=== PATIENT | male | born 1980 | race Caucasian/White ===

== ENCOUNTER 2018-04-30 12:33 | Emergency (ER) | payer OTHER ==
[2018-04-30 12:45] VITALS: BP 143/91
[2018-04-30] MEDS ORDERED: TETANUS/DIPHTHERIA/PERTUSSIS 0.5 ML SYRINGE IM ONE (13:01)
[2018-04-30] MEDS ORDERED: BACITRACIN OINT TOP STA (13:23)
--- NOTE | 2018-04-30 13:30 | ED Physician Documentation ---
PD HPI UPPER EXT INJURY - Stated complaint Stated Complaint: ARM LAC - Chief complaint Chief Complaint: Laceration - History obtained from History obtained from: Patient, Friend - History of Present Illness Location: Left, Elbow Type of injury: Laceration (L elbow) Where injury occurred: Work Timing - onset: Today Timing - duration: Hours (1) Timing - details: Abrupt onset Pain level max: 0 Pain level now: 0 Improved by: Rest Worsened by: Moving, Palpating Associated symptoms: No: Weakness, Numbness, Tingling, Swelling - Additonal information Additional information: cut L elbow on metal flashing today Review of Systems Constitutional: denies: Fever, Chills PD PAST MEDICAL HISTORY - Past Medical History Past Medical History: No - Past Surgical History Past Surgical History: No - Present Medications Home Medications: Ambulatory Orders Medication Instructions Recorded Confirmed No Known Home Medications [No 04/30/18 04/30/18 Known Home Medications] - Allergies Allergies/Adverse Reactions: Allergies Allergy/AdvReac Type Severity Reaction Status Date / Time No Known Drug Allergies Allergy Verified 04/30/18 12:39 - Social History Does the pt smoke?: No Smoking Status: Never smoker Does the pt drink ETOH?: No Does the pt have substance abuse?: Yes Substance Use and Type: Marijuana - Immunizations Immunizations are current?: No Immunizations: TDAP >10years/unknown - POLST Patient has POLST: No PD ED PE NORMAL - Vitals Vital signs reviewed: Yes - General General: Alert and oriented X 3, No acute distress - Derm Derm: Warm and dry - Neuro Neuro: Alert and oriented X 3 - Psych Psych: Normal mood, Normal affect PD ED PE EXPANDED - Extremities KLEVER UE/Hands Visual: 1 - laceration (3cm, linear into subcutaneous fat. nvi) Results - Vitals Vitals: Vital Signs - 24 hr 04/30/18 12:36 Temperature 35.4 C L Heart Rate 93 Respiratory 16 Rate Blood Pressure 143/91 H O2 Saturation 92 Oxygen O2 Source Room air Procedures - Laceration (location) L elbow Length in cm: 3 Wound type: Linear, Into subcut fat Neurovascular status: Sensory intact, Motor intact, Vascular intact Wound Preparation: Irrigated copiously NS Skin layer closure: Harleen Other: Patient tolerated well, No complications, Neurovascular intact Complexity: Simple PD MEDICAL DECISION MAKING - ED course Complexity details: considered differential, d/w patient ED course: Patient is a 37-year-old male with a laceration to left elbow. Repaired with harleen. Tolerated well. Tdap given. Warnings of infection and instructions on wound care given at bedside. Also counseled on how to minimize scarring. Patient counseled regarding signs and symptoms for which I believe and urgent re -evaluation would be necessary. Patient with good understanding of and agreement to plan and is comfortable going home at this time This document was made in part using voice recognition software. While efforts are made to proofread this document, sound alike and grammatical errors may occur. L and I paperwork filled out - Sepsis Event Vital Signs: Vital Signs - 24 hr 04/30/18 12:36 Temperature 35.4 C L Heart Rate 93 Respiratory 16 Rate Blood Pressure 143/91 H O2 Saturation 92 Oxygen O2 Source Room air Departure - Departure Disposition: 01 Home, Self Care Clinical Impression: Elbow laceration Qualifiers: Encounter type: initial encounter Laterality: left Qualified Code(s): S51.012A - Laceration without foreign body of left elbow, initial encounter Condition: Good Instructions: ED Laceration Ext Sutr Stap Tape Follow-Up: your,doctor in 10-14 days for staple removal [Other] Comments: Return if you worsen. Keep the wound clean. The harleen should be removed in 10- 14 days. Return for redness, swelling or drainage from the wound. Discharge Date/Time: 04/30/18 13:52
== END 2018-04-30 13:52 | disposition home or self-care (01) ==
LOC: ED 12:33
DX: S51.012A Laceration without foreign body of left elbow, initial encounter (principal); W26.8XXA Contact with other sharp object(s), not elsewhere classified, initial encounter; Y93.H3 Activity, building and construction; Y99.0 Civilian activity done for income or pay
CPT/HCPCS: 1040M; 12002; 90471; 90715; 99283; A9270

== ENCOUNTER 2018-05-12 13:44 | Emergency (ER) | payer OTHER ==
[2018-05-12 13:53] VITALS: BP 136/84
--- NOTE | 2018-05-12 14:02 | ED Physician Documentation ---
History of Present Illness - Stated complaint Stated Complaint: SUTURE REMOVAL - Chief complaint Chief Complaint: General - History obtained from History obtained from: Patient - History of Present Illness Timing: Other (3 harleen in the elbow from a visit 13 days ago that he needs removed, he has not had any issues with them.) PD PAST MEDICAL HISTORY - Past Medical History Past Medical History: Yes - Past Surgical History Past Surgical History: No - Present Medications Home Medications: Ambulatory Orders Medication Instructions Recorded Confirmed No Known Home Medications [No 04/30/18 04/30/18 Known Home Medications] - Allergies Allergies/Adverse Reactions: Allergies Allergy/AdvReac Type Severity Reaction Status Date / Time No Known Drug Allergies Allergy Verified 05/12/18 13:53 - Social History Does the pt smoke?: No Smoking Status: Never smoker Does the pt drink ETOH?: No Does the pt have substance abuse?: Yes - Immunizations Immunizations are current?: Yes Immunizations: TDAP current <10years - POLST Patient has POLST: No PD ED PE NORMAL - Vitals Vital signs reviewed: Yes - General General: Alert and oriented X 3, No acute distress - Extremities Extremities: Other (On of the left elbow with 3 harleen in it, no evidence of infection. The harleen were removed during examination and replaced with Steri- Strips with benzoin.) - Neuro Neuro: Alert and oriented X 3, Normal speech Results - Vitals Vitals: Vital Signs - 24 hr 05/12/18 13:52 Temperature 37 C Heart Rate 102 H Respiratory 20 Rate Blood Pressure 136/84 H O2 Saturation 99 Oxygen O2 Source Room air PD MEDICAL DECISION MAKING - Sepsis Event Vital Signs: Vital Signs - 24 hr 05/12/18 13:52 Temperature 37 C Heart Rate 102 H Respiratory 20 Rate Blood Pressure 136/84 H O2 Saturation 99 Oxygen O2 Source Room air Departure - Departure Disposition: 01 Home, Self Care Clinical Impression: Encounter for staple removal Condition: Good Comments: Your blood pressure was elevated today on check into the emergency department. This does not mean that you have hypertension, it is a common phenomenon to come to the emergency department and have elevated blood pressure. I recommend that you see your primary care physician within the week to have it rechecked when you are feeling better.
== END 2018-05-12 14:02 | disposition home or self-care (01) ==
LOC: ED 13:44
DX: Z48.02 Encounter for removal of sutures (principal); R03.0 Elevated blood-pressure reading, without diagnosis of hypertension
CPT/HCPCS: 99282

== ENCOUNTER 2020-02-20 18:38 | Emergency (ER) | payer OTHER ==
[2020-02-20 19:23] LABS: BASOPHILS # (AUTO) 0.1 10^3/uL (0.0-0.1); BASOPHILS % (AUTO) 0.6 %; EOSINOPHILS % (AUTO) 0.2 %; HGB - HEMOGLOBIN 15.2 g/dL (14.0-18.0); LYMPHOCYTES # (AUTO) 1.6 10^3/uL (1.5-3.5); LYMPHOCYTES % (AUTO) 12.7 %; MEAN CORPUSCULAR HEMOGLOBIN 31.5 pg (27.0-31.0); MEAN CORPUSCULAR HGB CONC 34.6 g/dL (32.0-36.0); MEAN CORPUSCULAR VOLUME 91.1 fL (80.0-94.0); MEAN PLATELET VOLUME 11.3 fL (7.4-11.4); MONOCYTES # (AUTO) 0.6 10^3/uL (0.0-1.0); MONOCYTES % (AUTO) 5.2 %; NEUTROPHILS # (AUTO) 9.9 10^3/uL (1.5-6.6); PLT - PLATELET COUNT 241 10^3/uL (130-450); RED BLOOD COUNT 4.82 10^6/uL (4.70-6.10); RED CELL DISTRIBUTION WIDTH 12.1 % (12.0-15.0); WHITE BLOOD COUNT 12.2 x10^3/uL (4.8-10.8)
[2020-02-20 19:26] LABS: BILIRUBIN,URINE NEGATIVE (NEGATIVE); GLUCOSE, URINE (UA) NEGATIVE (NEGATIVE); KETONES,URINE (UA) 15 mg/dL (NEGATIVE); LEUKOCYTE ESTERASE, URINE NEGATIVE (NEGATIVE); NITRITE,URINE NEGATIVE (NEGATIVE); OCCULT BLOOD,URINE LARGE (NEGATIVE); PH,URINE 8.5 PH (5.0-7.5); PROTEIN,URINE TRACE mg/dL (NEGATIVE); UROBILINOGEN,URINE 0.2 (NORMAL) E.U./dL (NORMAL)
[2020-02-20 19:27] LABS: ALBUMIN 4.8 g/dL (3.2-5.5); ALBUMIN/GLOBULIN RATIO 1.4 (1.0-2.2); BILIRUBIN,TOTAL 0.9 mg/dL (0.2-1.0); CALCIUM 9.8 mg/dL (8.5-10.3); TOTAL PROTEIN 8.3 g/dL (6.7-8.2)
[2020-02-20 19:30] LABS: CLARITY,URINE CLEAR (CLEAR)
[2020-02-20 19:31] LABS: BACTERIA,URINE Rare /HPF (None Seen); RBC,URINE TNTC /HPF (0-5); SQUAMOUS EPITHELIAL CELL,UR NONE SEEN (<= Few)
[2020-02-20] MEDS ORDERED: SODIUM CHLORIDE 0.9% 1,000 ML IV STA (19:39)
[2020-02-20] MEDS ORDERED: KETOROLAC 30 MG/ML VIAL IVP STA (19:39)
[2020-02-20] MEDS ORDERED: ONDANSETRON 4 MG/2 ML VIAL IVP STA (19:39)
[2020-02-20] MEDS ORDERED: HYDROmorphone 0.5 MG/0.5 ML SYRINGE IVP STA (19:39)
--- NOTE | 2020-02-20 19:42 | ED Physician Documentation ---
History of Present Illness - Stated complaint Stated Complaint: LT SIDE ABD PX - Chief complaint Chief Complaint: Abd Pain - History obtained from History obtained from: Patient (Patient is a 39-year-old male who presents with left-sided flank pain with dysuria and hematuria with a history of kidney stones with nausea and vomiting and pain he denies any fevers reports he is able to void. Denies any other complaints.) Review of Systems Constitutional: reports: Reviewed and negative Eyes: reports: Reviewed and negative Ears: reports: Reviewed and negative Nose: reports: Reviewed and negative Throat: reports: Reviewed and negative Cardiac: reports: Reviewed and negative Respiratory: reports: Reviewed and negative GI: reports: Other (Left-sided flank pain and hematuria) : reports: Reviewed and negative Skin: reports: Reviewed and negative Musculoskeletal: reports: Reviewed and negative Neurologic: reports: Reviewed and negative Psychiatric: reports: Reviewed and negative Endocrine: reports: Reviewed and negative Immunocompromised: reports: Reviewed and negative PD PAST MEDICAL HISTORY - Past Medical History Past Medical History: Yes Cardiovascular: None Respiratory: None Neuro: None Endocrine/Autoimmune: None GI: None : Kidney stones HEENT: None Psych: None Musculoskeletal: None Derm: None Other Past Medical History: KIDNEY STONES X 5 years ago.... - Past Surgical History Past Surgical History: No - Present Medications Home Medications: Ambulatory Orders Medication Instructions Recorded Confirmed Hydrocodone/Acetaminophen [Arrey 1 each PO Q6HR PRN #14 tablet 02/20/20 5-325 Tablet] Ondansetron Odt [Zofran Odt] 4 mg TL Q6H PRN #10 tablet 02/20/20 Tamsulosin HCl [Flomax] 0.4 mg PO DAILY 7 Days #7 02/20/20 cap.er.24h - Allergies Allergies/Adverse Reactions: Allergies Allergy/AdvReac Type Severity Reaction Status Date / Time SUNSCREEN/PAVO AdvReac Unknown Uncoded 02/20/20 19:18 - Social History Does the pt smoke?: Yes Smoking Status: Current every day smoker Does the pt drink ETOH?: No Does the pt have substance abuse?: Yes - Immunizations Immunizations are current?: Yes Immunizations: TDAP current <10years - POLST Patient has POLST: No PD ED PE NORMAL - Vitals Vital signs reviewed: Yes - General General: Alert and oriented X 3, No acute distress, Well developed/nourished - HEENT HEENT: Atraumatic, PERRL - Neck Neck: Supple, no meningeal sign - Cardiac Cardiac: RRR, No murmur, Strong equal pulses - Respiratory Respiratory: No respiratory distress, Clear bilaterally - Abdomen Abdomen: Other (The abdomen soft, nontender, nondistended with normoactive bowel sounds no guarding or rebound or hepatosplenomegaly positive for left-sided CVA tenderness.) - Back Back: Other (Positive for left-sided CVA tenderness palpation) - Derm Derm: Warm and dry - Extremities Extremities: No deformity - Neuro Neuro: Alert and oriented X 3 - Psych Psych: Normal mood, Normal affect Results - Vitals Vitals: Vital Signs - 24 hr 02/20/20 02/20/20 02/20/20 18:55 19:12 19:15 Temperature 36.9 C Heart Rate 82 Respiratory 14 17 17 Rate Blood Pressure 134/70 H O2 Saturation 100 02/20/20 02/20/20 02/20/20 19:50 20:02 20:03 Temperature Heart Rate Respiratory 21 19 18 Rate Blood Pressure O2 Saturation 02/20/20 02/20/20 02/20/20 20:17 20:30 20:58 Temperature Heart Rate 94 85 84 Respiratory 17 17 17 Rate Blood Pressure 121/94 H 128/78 O2 Saturation 97 98 98 02/20/20 21:39 Temperature Heart Rate Respiratory 17 Rate Blood Pressure O2 Saturation Oxygen O2 Source Room air - Labs Labs: Laboratory Tests 02/20/20 02/20/20 02/20/20 19:07 19:07 19:15 WBC 12.2 H RBC 4.82 Hgb 15.2 Hct 43.9 MCV 91.1 MCH 31.5 H MCHC 34.6 RDW 12.1 Plt Count 241 MPV 11.3 Neut # (Auto) 9.9 H Lymph # (Auto) 1.6 Jay # (Auto) 0.6 Eos # (Auto) 0.0 Baso # (Auto) 0.1 Absolute Nucleated RBC 0.00 Nucleated RBC % 0.0 Sodium 137 Potassium 3.4 L Chloride 102 Carbon Dioxide 22 Anion Gap 13.0 BUN 14 Creatinine 1.0 Estimated GFR (MDRD) 84 L Glucose 121 H Calcium 9.8 Total Bilirubin 0.9 AST 34 ALT 38 Alkaline Phosphatase 112 Total Protein 8.3 H Albumin 4.8 Globulin 3.5 Albumin/Globulin Ratio 1.4 Lipase 42 Urine Color DARK YELLOW Urine Clarity CLEAR Urine pH 8.5 H Ur Specific [place] 1.020 Urine Protein TRACE Urine Glucose (UA) NEGATIVE Urine Ketones 15 H Urine Occult Blood LARGE H Urine Nitrite NEGATIVE Urine Bilirubin NEGATIVE Urine Urobilinogen 0.2 (NORMAL) Ur Leukocyte Esterase NEGATIVE Urine RBC TNTC H Urine WBC 4-5 Ur Squamous Epith Cells NONE SEEN Urine Bacteria Rare Ur Microscopic Review INDICATED Urine Culture Comments NOT INDICATED PD MEDICAL DECISION MAKING - ED course Complexity details: reviewed results, re-evaluated patient, considered differential (Likely nephrolithiasis/ureterolithiasis.), d/w patient (Had a lengthy discussion with this patient regarding his plan of care and treatment I did offer to transfer him to a higher level of care given the fact he does a 7 mm kidney stone with some mild hydro-no fever no leukocytosis pain is controlled and he is able to void without complications urinalysis shows no signs of infection given this the patient would like to be discharged home I did consult a urologist at [facility] who is agreed to evaluate this patient tomorrow as an outpatient.Patient with patient is agreeable to this plan will be discharged home.) - Consults Consults: Discussed case with (dr pineda urology. Recommends discharge home with antiemetics analgesics and Flomax call urology tomorrow to schedule follow-up. Does not recommend antibiotics.) Departure - Departure Disposition: 01 Home, Self Care Clinical Impression: Kidney stones Condition: Stable Instructions: Kidney Stones, ED Strainer Urine Follow-Up: Abdulkadir iPneda MD [Physician No Access] - Tomorrow Prescriptions: Hydrocodone/Acetaminophen [Arrey 5-325 Tablet] 1 each PO Q6HR PRN #14 tablet PRN Reason: Pain Ondansetron Odt [Zofran Odt] 4 mg TL Q6H PRN #10 tablet PRN Reason: Nausea / Vomiting Tamsulosin HCl [Flomax] 0.4 mg PO DAILY 7 Days #7 cap.er.24h Comments: Call urology tomorrow to schedule an appointment hydrate well. Take Flomax daily as prescribed. Discharge Date/Time: 02/20/20 21:49
[2020-02-20] MEDS ORDERED: HYDROmorphone 1 MG/ML CARPUJECT ONE (19:48)
--- NOTE | 2020-02-20 20:43 | CT Report ---
Reason: left flank pain Procedure Date: 02/20/2020 Accession Number: [id number] / [id number] Procedure: CT - Abdomen/Pelvis WO CPT Code: Final Report FULL RESULT: EXAM: CT ABDOMEN AND PELVIS EXAM DATE: 02/20/2020 08:11 PM. CLINICAL HISTORY: Left flank pain. COMPARISONS: None. TECHNIQUE: Routine helical CT imaging was performed through the abdomen and pelvis without intravenous contrast. Lack of intravenous contrast can at times limit scan sensitivity, particularly for the detection of intraparenchymal and vascular pathology. Reconstructions: Coronal and sagittal. In accordance with CT protocol optimization, one or more of the following dose reduction techniques were utilized for this exam: automated exposure control, adjustment of mA and/or KV based on patient size, or use of iterative reconstructive technique. FINDINGS: ABDOMEN: Lung Bases: Incompletely included lower lungs are grossly clear. Heart size is within normal limits. No basilar effusions. Liver: Unremarkable. Gallbladder/Bile Ducts: Gallbladder is unremarkable. Visualized biliary tree is normal caliber. Spleen: Unremarkable. Pancreas: Unremarkable. Adrenal Glands: Unremarkable. Kidneys: Right kidney: Nonobstructing right inferior 1.2 cm renal calculus. Left kidney: Moderate hydroureteronephrosis to the level of an obstructing 7 mm calculus in the proximal ureter (6/34). Peritoneum/Mesentery/Bowel: No free fluid, free air, or collection. No intestinal obstruction or inflammation. The appendix is within normal limits. Lymph nodes: No mesenteric, periportal, or retroperitoneal lymphadenopathy. PELVIS: The bladder is unremarkable for the degree of distention. Prostate is present. No pelvic lymphadenopathy. Retroperitoneum: Abdominal aorta is nonaneurysmal. Bones: No suspicious osseous lesions. IMPRESSION: Moderate left hydroureteronephrosis to the level of an obstructing 7 mm proximal ureteric calculus. Nonobstructing right inferior 1.2 cm right renal calculus. RADIA
[2020-02-20 20:58] VITALS: BP 128/78
[2020-02-20] MEDS ORDERED: HYDROcod/ACET 5/325 Prepack 4 PO STA (21:31)
== END 2020-02-20 21:49 | disposition home or self-care (01) ==
LOC: ED 18:38
DX: N13.2 Hydronephrosis with renal and ureteral calculous obstruction (principal); F17.200 Nicotine dependence, unspecified, uncomplicated
CPT/HCPCS: 36415; 74176; 80053; 81001; 83690; 85025; 96361; 96374; 99283; 99284; J1170; 81003; 87086

== ENCOUNTER 2020-03-23 09:00 | Outpatient (CLI) | payer OTHER | END 2020-03-23 09:01 | disposition home or self-care (01) | LOC: LAB.S 09:00 → LAB 09:01 | PROVIDERS: ATTEND Urology | DX: Z01.818 Encounter for other preprocedural examination (principal); Z11.59 Encounter for screening for other viral diseases | CPT/HCPCS: 81599 ==

== ENCOUNTER 2021-03-22 14:56 | Emergency (ER) | payer OTHER ==
[2021-03-22 15:15] VITALS: BP 152/89
--- NOTE | 2021-03-22 15:57 | ED Physician Documentation ---
PD HPI UPPER EXT INJURY - Stated complaint Stated Complaint: LT ARM INJURY - Chief complaint Chief Complaint: Trauma Ext - History obtained from History obtained from: Patient - History of Present Illness Location: Left, Elbow Type of injury: Fall (tripped) Where injury occurred: Work Timing - onset: Today Timing - details: Abrupt onset, Still present Worsened by: Moving, Palpating Associated symptoms: Swelling. No: Weakness, Numbness Similar symptoms before: Has not had sx before Review of Systems Cardiac: denies: Chest pain / pressure GI: denies: Abdominal Pain Skin: denies: Abrasion (s), Laceration (s) Musculoskeletal: denies: Neck pain, Back pain Neurologic: denies: Focal weakness, Numbness, Altered mental status, Headache, Head injury, LOC PD PAST MEDICAL HISTORY - Past Medical History Cardiovascular: None Respiratory: None Neuro: None Endocrine/Autoimmune: None GI: None : Kidney stones HEENT: None Psych: None Musculoskeletal: None Derm: None - Past Surgical History Past Surgical History: No - Present Medications Home Medications: Ambulatory Orders Medication Instructions Recorded Confirmed Hydrocodone/Acetaminophen [Dorothy 1 each PO Q6HR PRN #14 tablet 02/20/20 5-325 Tablet] Ondansetron Odt [Zofran Odt] 4 mg TL Q6H PRN #10 tablet 02/20/20 Tamsulosin HCl [Flomax] 0.4 mg PO DAILY 7 Days #7 02/20/20 cap.er.24h - Allergies Allergies/Adverse Reactions: Allergies Allergy/AdvReac Type Severity Reaction Status Date / Time oxybenzone AdvReac Rash Verified 03/22/21 15:12 - Social History Does the pt smoke?: Yes Smoking Status: Current every day smoker Does the pt drink ETOH?: No Does the pt have substance abuse?: Yes - Immunizations Immunizations are current?: Yes Immunizations: TDAP current <10years - POLST Patient has POLST: No PD ED PE NORMAL - Vitals Vital signs reviewed: Yes - General General: Alert and oriented X 3, No acute distress, Well developed/nourished, Other (holding left arm supported by right hand. Pain with ROM of the elbow. ) - HEENT HEENT: Atraumatic - Neck Neck: Supple, no meningeal sign, No bony TTP - Cardiac Cardiac: RRR, No murmur - Respiratory Respiratory: Clear bilaterally, Other (no chestwall tenderness) - Abdomen Abdomen: Soft, Non tender - Back Back: No spinal TTP - Extremities Extremities: Other (left elbow with swelling/effusion, and tender anterolateral area mostly. Not tender at wrist nor shoulder. ) - Neuro Neuro: Alert and oriented X 3, No motor deficit, No sensory deficit Results - Vitals Vitals: Vital Signs - 24 hr 03/22/21 15:12 Temperature 36.5 C Heart Rate 86 Respiratory 16 Rate Blood Pressure 152/89 H O2 Saturation 99 Oxygen O2 Source Room air - Rads (name of study) left elbow Radiology: Prelim report reviewed (effusion, and apparent capitellar fracture, ? displaced. ), See rad report Procedures - Splint (location) left elbow Splint applied by: Tech Type of splint: Fiberglass, Posterior Other: Patient tolerated well, No complications, Neurovascular intact, Sling provided PD MEDICAL DECISION MAKING - ED course Complexity details: reviewed results (capitellar fracture elbow. Talked with patient that may need surgical repair based on ortho judgement.), considered differential (fell while carrying heavy object at work, landed to left forearm/elbow. Pain with ROM. ), d/w patient Departure - Departure Disposition: 01 Home, Self Care Clinical Impression: Accident at workplace Accidental fall Qualifiers: Encounter type: initial encounter Qualified Code(s): W19.XXXA - Unspecified fall, initial encounter Closed fracture of capitellum of left humerus Qualifiers: Encounter type: initial encounter Qualified Code(s): S42.452A - Displaced fracture of lateral condyle of left humerus, initial encounter for closed fracture Condition: Stable Record reviewed to determine appropriate education?: Yes Instructions: ED Fx Elbow Follow-Up: Robin Shah MD [Provider Admit Priv/Credential] - Comments: Keep the splint in place and use of the sling to reduce motion and protect the elbow. The radiology report does confirm a capitellar fracture (that part of the elbow was pointing out on your picture) but they do say that it looks slightly out of place. It may need repair if it is not better located when the swelling is down. Follow-up with orthopedics for recheck at the end of this week or early next week, call for an appointment. Ice elevate and rest the elbow often to reduce swelling. Consider using some ibuprofen 600 mg 3 times a day. To that add Tylenol every 4-6 hours if needed for pain. No use of the left arm for 4 to 6 weeks while this is healing. Forms: Activity restrictions Discharge Date/Time: 03/22/21 16:48
[2021-03-22] MEDS ORDERED: IBUPROFEN 600 MG TABLET PO STA (16:09)
[2021-03-22] MEDS ORDERED: ACETAMINOPHEN 325 MG TABLET PO STA (16:09)
--- NOTE | 2021-03-22 16:21 | XRAY Report ---
PROCEDURE: Elbow 3 View LT INDICATIONS: fall, elbow pain TECHNIQUE: 4 views of the elbow were acquired. COMPARISON: None FINDINGS: Bones: Comminuted, displaced fracture involving the capitellum of the distal humerus. Soft tissues: No elbow joint effusion. No suspicious soft tissue calcifications. IMPRESSION: Distal humerus fracture. Reviewed by: Pia Julien MD, PhD on 03/22/2021 4:20 PM PDT Approved by: Pia Julien MD, PhD on 03/22/2021 4:20 PM PDT Station ID: [id number]
== END 2021-03-22 16:48 | disposition home or self-care (01) ==
LOC: ED 14:56
DX: S42.452A Displaced fracture of lateral condyle of left humerus, initial encounter for closed fracture (principal); W01.0XXA Fall on same level from slipping, tripping and stumbling without subsequent striking against object, initial encounter; Y93.89 Activity, other specified; Y99.0 Civilian activity done for income or pay; F17.200 Nicotine dependence, unspecified, uncomplicated
CPT/HCPCS: 1040M; 29105; 73080; 99283; 99284; A9270

== ENCOUNTER 2023-10-27 16:14 | Outpatient (CLI) | payer OTHER ==
[2023-10-27 16:30] LABS: BASOPHILS % (AUTO) 0.6 %; EOSINOPHILS # (AUTO) 0.1 10^3/uL (0.0-0.7); HCT - HEMATOCRIT 45.1 % (42.0-52.0); LYMPHOCYTES # (AUTO) 1.9 10^3/uL (1.5-3.5); LYMPHOCYTES % (AUTO) 28.6 %; MEAN CORPUSCULAR HEMOGLOBIN 30.5 pg (27.0-31.0); MEAN CORPUSCULAR HGB CONC 33.3 g/dL (32.0-36.0); MEAN CORPUSCULAR VOLUME 91.7 fL (80.0-94.0); MONOCYTES # (AUTO) 0.4 10^3/uL (0.0-1.0); MONOCYTES % (AUTO) 6.4 %; NEUTROPHILS # (AUTO) 4.3 10^3/uL (1.5-6.6); NEUTROPHILS % (AUTO) 63.3 %; PLT - PLATELET COUNT 216 10^3/uL (130-450); RED BLOOD COUNT 4.92 10^6/uL (4.70-6.10); RED CELL DISTRIBUTION WIDTH 12.1 % (12.0-15.0); WHITE BLOOD COUNT 6.7 x10^3/uL (4.8-10.8)
[2023-10-27 17:06] LABS: ALBUMIN 4.8 g/dL (3.2-5.5); ALBUMIN/GLOBULIN RATIO 1.5 (1.0-2.2); ALKALINE PHOSPHATASE 126 IU/L (42-121); ALT ALANINE AMINOTRANSFERASE 25 IU/L (10-60); AST ASPARTATE AMINOTRANSFERASE 22 IU/L (10-42); BILIRUBIN,TOTAL 1.2 mg/dL (0.2-1.0); BUN - BLOOD UREA NITROGEN 13 mg/dL (6-20); CALCIUM 9.8 mg/dL (8.5-10.3); CARBON DIOXIDE - CO2 27 mmol/L (21-32); CHLORIDE 104 mmol/L (101-111); CHOL/HDL RATIO 3.6 (<5.0); CHOLESTEROL 123 mg/dL; CREATININE 0.9 mg/dL (0.6-1.3); GFR - MDRD 93 (>89); GLUCOSE 86 mg/dL (74-104); HDL CHOLESTEROL 34 mg/dL; LDL CHOLESTEROL,CALCULATED 56 mg/dL; LDL/HDL RATIO 1.6 (<3.6); POTASSIUM 3.7 mmol/L (3.5-4.5); SODIUM 140 mmol/L (135-145); TRIGLYCERIDES 164 mg/dL (48-352); VLDL CHOLESTEROL 33 mg/dL
== END 2023-10-27 16:15 | disposition home or self-care (01) ==
LOC: LAB.S 16:14
PROVIDERS: ATTEND Internal Medicine Cardiovascular Disease
DX: I10 Essential (primary) hypertension (principal); I25.10 Atherosclerotic heart disease of native coronary artery without angina pectoris; Z95.5 Presence of coronary angioplasty implant and graft; E78.5 Hyperlipidemia, unspecified; I21.02 ST elevation (STEMI) myocardial infarction involving left anterior descending coronary artery
CPT/HCPCS: 36415; 80053; 80061; 83721; 85025